=== PATIENT | female | born 1995 | race Caucasian/White ===

== ENCOUNTER 2020-02-12 10:24 | Outpatient (CLI) | payer OTHER ==
[2020-02-12 18:25] LABS: SARS-CoV-2 MS2 Positive; SARS-CoV-2 N Gene Negative; SARS-CoV-2 S Gene Negative; SARS-CoV-2 by NAA Not Detected (NotDetected); SARS-CoV-2 orf1ab Negative
== END 2020-02-12 10:25 | disposition home or self-care (01) ==
LOC: LABBT 10:24
PROVIDERS: ATTEND Student in an Organized Health Care Education/Training Program
DX: Z01.812 Encounter for preprocedural laboratory examination (principal); Z20.822 Contact with and (suspected) exposure to COVID-19
CPT/HCPCS: 87635; U0003

== ENCOUNTER 2020-02-14 15:05 | Inpatient (IN) | payer OTHER, BC ==
[~2020-02-14 15:05] MED LIST: Bupivacaine 0.25% HCL 30 ML VIAL ONE; ePHEDrine 50 MG/ML VIAL ONE
[2020-02-15] MEDS ORDERED: Diphenoxylate HCl/Atropine Tablet PO PRN (03:39)
[2020-02-15] MEDS ORDERED: Lidocaine 1% (PF) 30 ML VIAL SC PRN (03:39)
[2020-02-15] MEDS ORDERED: Ondansetron PF 4 MG/2 ML Vial IVP PRN ×2 (03:39→23:55)
[2020-02-15] MEDS ORDERED: Methylergonovine 0.2 MG/ML VIAL IM PRN (03:39)
[2020-02-15] MEDS ORDERED: Misoprostol 200 MCG TAB PR PRN (03:39)
[2020-02-15] MEDS ORDERED: Carboprost 250 MCG/ML AMP IM PRN (03:39)
[2020-02-15] MEDS ORDERED: Ibuprofen 800 MG TAB PO PRN (03:39)
[2020-02-15] MEDS ORDERED: NS / Oxytocin 40 units/1000ml 1,000 ML IV PRN (03:39)
[2020-02-15] MEDS ORDERED: HYDROcodone/Acetaminophen 5/325 mg Tablet PO PRN (03:39)
[2020-02-15] MEDS ORDERED: Promethazine HCl 25 MG/ML VIAL IM PRN ×2 (03:39→23:55)
[2020-02-15] MEDS ORDERED: Acetaminophen 500 MG TAB PO PRN (03:39)
[2020-02-15] MEDS ORDERED: hydrALAZINE 20 MG/ML VIAL SLOW IVP PRN (03:39)
[2020-02-15 03:50] VITALS: BMI 38.2
[2020-02-15] MEDS ORDERED: Penicillin G Potassium 5 MILL.UNITS VIAL ONE (04:07)
[2020-02-15] MEDS: Misoprostol 100 MCG TAB VAG SCH ×3 (04:21→11:18)
[2020-02-15] MEDS: Lactated Ringer's 1,000 ML IV SCH ×3 (04:21→22:45)
[2020-02-15 04:22] LABS: Hemoglobin 10.2 g/dL (12.0-16.0); Mean Corpuscular HGB CONC 33.7 g/dL (32.0-36.0); Mean Corpuscular Hemoglobin 28.9 pg (27.0-31.0); Mean Corpuscular Volume 85.6 fL (78.0-98.0); Mean Platelet Volume 8.5 fL (7.4-10.4); Platelet Count 276 thou/uL (130-400); RBC Distribution Width 12.8 % (11.5-14.5); Red Blood Cell (RBC) Count 3.54 mill/uL (4.20-5.40); White Blood Cell (WBC) Count 9.5 thou/uL (4.8-10.8)
[2020-02-15 05:05] LABS: HBSAg Index 0.18 S/CO (0-0.99); Hep B Surf Ag Non-Reactive S/CO (NonReactive)
[2020-02-15 06:22] LABS: Syphilis Antibody Nonreactive (Nonreactive); Syphilis Antibody Index 0.02 S/CO (<1.00 Non-Reactive)
--- NOTE | 2020-02-15 08:03 | PDOC.LDHP ---
Labor and Delivery H&P Chief complaint: scheduled induction HPI: 24yo at 39w6d by LMP here for elective IOL. No complaints, no PIH sx. Current gestational age (weeks): 39 Due date: 02/16/20 Dating criteria: last menstrual period Grav: 1 Para: 0 Current complications: none Abnormal US findings: No Past Medical History: denies Current medications: pre- vitamins Previous surgical history: none Allergies/Adverse Reactions: Allergies Allergy/AdvReac Type Severity Reaction Status Date / Time Sulfa (Sulfonamide Allergy Intermediate Hives Verified 02/15/20 03:41 Antibiotics) Social history: none - Physical Exam Vital signs reviewed and normal: yes Abnormal vital signs: mild range bp x 1 General: NAD Heart: RRR Lungs: CTAB Abdomen: gravid Extremeties: no edema FHT: category 1 [place] contractions every: none - Vaginal Exam cm dilated: 1 Effacement: 50% Station: -3 - OB Labs Blood type: O RH: positive Antibody Screen: negative HIV: negative RPR: negative HEPSAg: negative 1 hour GCT: negative GBS: positive Urine drug screen: negative Rubella: immune - Assessment L&D Assessment: elective induction at term - Plan Plan: admit to L&D, cervical ripening, labor augmentation if indicated, GBS antibiotic prophylaxis, informed consent obtained, anesthesia consult for pain management
[2020-02-15] MEDS ORDERED: Penicillin G 2.5 MILL.units 50 ML ONE ×2 (09:59→18:43)
[2020-02-15] MEDS: Penicillin G 2.5 MILL.units 50 ML ONE ×2 (14:34→18:44)
[2020-02-15] MEDS: NS w/ Oxytocin 30 units 500 ML IVPB SCH (15:31)
[2020-02-15] MEDS: Butorphanol Tartrate 1 MG/ML VIAL SLOW IVP PRN ×2 (18:38→21:01)
[2020-02-15] MEDS ORDERED: Penicillin G Potassium 5 MILL.UNITS in Sodium Chloride 0.9% 100 ML IVPB SCH (19:00)
[2020-02-15 19:57] LABS: ALT (SGPT) 11 U/L (8-55); AST (SGOT) 15 U/L (5-34); Albumin 3.3 g/dL (3.5-5.0); Alkaline Phosphatase 177 U/L (40-110); Anion Gap 16 mmol/L (10-20); BUN (Urea Nitrogen) 6 mg/dL (7.0-18.7); Bilirubin, Total 0.4 mg/dL (0.2-1.2); Calc. Creatinine Clearance 202 mL/min (70-130); Calcium 8.7 mg/dL (7.8-10.44); Carbon Dioxide 18 mmol/L (22-29); Chloride 102 mmol/L (98-107); Globulin 3.1 g/dL (2.4-3.5); Glucose 78 mg/dL (70-105); Potassium 3.9 mmol/L (3.5-5.1); Protein, Total 6.4 g/dL (6.0-8.3); Sodium 132 mmol/L (136-145)
[2020-02-15 21:51] LABS: Bilirubin Negative (Negative); Blood, Urine 2+ (Negative); Clarity Extra Turbid (Clear); Glucose, Urine (Dipstick) Normal (Negative); Ketone, Urine 80 mg/dL (Negative); Leukocyte 250 Leu/uL (Negative); Nitrite Negative (Negative); Protein, Urine (Dipstick) 100 mg/dL (Neg-Trace); RBC/HPF Greater than 50 HPF (0-3); Specific Gravity, Urine 1.018 (1.002-1.036); Squamous Epithelial 21-50 HPF (0-3); Urobilinogen Normal mg/dL (Less than 2); WBC/HPF Greater than 50 HPF (0-3)
[2020-02-15 22:06] LABS: Bacteria/HPF 2+ HPF (None Seen)
[2020-02-15] MEDS ORDERED: Fentanyl 4 mcg/Bup 0.1% Cadd 100 ML ONE (22:10)
[2020-02-15] MEDS ORDERED: Communication Order-Pharmacy FS SCH (23:45)
[2020-02-15] MEDS ORDERED: Fentanyl 4 mcg/Bupivacaine 0.1% Cassette 100 ML EPIDURAL SCH (23:45)
[2020-02-15] MEDS ORDERED: ePHEDrine 50 MG/ML VIAL SLOW IVP PRN (23:55)
[2020-02-15] MEDS ORDERED: Naloxone HCl 0.4 mg/ml Vial IVP PRN ×2 (23:55)
[2020-02-15] MEDS ORDERED: Acetaminophen 325 MG TAB PO PRN (23:55)
[2020-02-15] MEDS ORDERED: Lactated Ringer's 500 ML IV PRN (23:55)
[2020-02-15] MEDS ORDERED: diphenhydrAMINE 50 MG/ML VIAL IVP PRN (23:55)
[2020-02-16] MEDS: NS w/ Oxytocin 30 units 500 ML IVPB SCH ×2 (01:18→02:05)
[2020-02-16] MEDS ORDERED: Zolpidem Tartrate 5 MG TAB PO PRN (01:28)
[2020-02-16] MEDS ORDERED: Lanolin Ointment 7 GM TUBE TOP PRN (01:28)
[2020-02-16] MEDS ORDERED: Milk Of Magnesia 30 ML UDCUP PO PRN (01:28)
[2020-02-16] MEDS ORDERED: HYDROcodone/Acetaminophen 5/325 mg Tablet PO PRN ×2 (01:28)
[2020-02-16] MEDS ORDERED: hydrALAZINE 20 MG/ML VIAL SLOW IVP PRN (01:28)
[2020-02-16] MEDS ORDERED: Promethazine HCl 25 MG/ML VIAL IM PRN (01:28)
[2020-02-16] MEDS ORDERED: diphenhydrAMINE 25 MG CAP PO PRN (01:28)
[2020-02-16] MEDS ORDERED: Bisacodyl 10 MG SUPP PR PRN (01:28)
[2020-02-16] MEDS ORDERED: Benzocaine-Menthol 82.5 ML CAN TOP PRN (01:28)
[2020-02-16] MEDS ORDERED: Preparation H Ointment 28 GM TUBE PR PRN (01:28)
[2020-02-16] MEDS ORDERED: Ondansetron PF 4 MG/2 ML Vial IVP PRN (01:28)
--- NOTE | 2020-02-16 01:28 | PDOC.OPDEL ---
OB Operative/Delivery Note Delivery Dr/Surgeon: Nelson Assist: n/a Pre-Delivery Diagnosis: medically indicated induction (GHTN) Procedure/Post Delivery Dx: spontaneous vaginal delivery Weeks gestation: 40 Anesthesia: epidural - Findings A Sex: female - 1 min: 8 - 5 min: 9 - Additional Findings/Plan Placenta delivered: spontaneous Repaired Obstetrical Laceration: 1st degree Estimated blood loss: 150cc Post delivery plan: routine recovery
[2020-02-16] MEDS ORDERED: NS / Oxytocin 40 units/1000ml 1,000 ML IV SCH (01:30)
[2020-02-16] MEDS: Misoprostol 100 MCG TAB VAG SCH ×3 (08:46→19:18)
[2020-02-16] MEDS: Pen G 2.5 MILL.UNITS/50 ML BAG IVPB SCH ×4 (08:46→19:19)
[2020-02-16] MEDS: Lactated Ringer's 1,000 ML IV SCH ×3 (08:47→19:19)
[2020-02-16] MEDS: Ibuprofen 800 MG TAB PO SCH ×3 (08:47→21:26)
[2020-02-16] MEDS ORDERED: Adacel (T-DAP) 0.5 ML SYRINGE IM ONE (09:00)
[2020-02-16] MEDS: Ferrous Sulfate 325 MG TAB PO SCH ×2 (10:23→18:26)
[2020-02-16] MEDS: Docusate Calcium (SURFAK) 240 MG CAP PO SCH ×2 (10:53→21:26)
[2020-02-16] MEDS: Prenatal Vitamin 1 TAB PO SCH (10:53)
[2020-02-17] MEDS: Ibuprofen 800 MG TAB PO SCH ×3 (05:17→21:55)
--- NOTE | 2020-02-17 07:07 | PDOC.PP ---
Post Progress Note Post Day #: 1 Subjective: Doing well this morning. PPD#1. Tolerating PO well. Lochia similar to regular period. Pain-well controlled. Ambulating, voiding, and passing flatus. going well. Denies MALONE, vision changes, CP, SOB, n/v, fever/chills. PO intake tolerated: yes Flatus: yes Ambulation: yes Vital Signs (12 hours) Temp Pulse Resp BP Pulse Ox 02/17/20 00:37 98.2 F 68 16 120/70 02/16/20 20:05 97.9 F 86 16 136/82 98 Weight Weight 104.326 kg - Physical Examination General: NAD (resting comfortably, good spirits) Cardiovascular: RRR Respiratory: clear to auscultation bilaterally Abdominal: + bowel sounds, no distention, appropriately TTP Fundus firm & at: Umbilicus Extremities: negative homans (B) (mild, non-pitting edma to ankles) Neurological: no gross focal deficits Psychiatric: A&Ox3, normal affect Result Diagrams: 02/15/20 04:11 02/15/20 19:26 Additional Labs: Post Labs Hep Bs Antigen Non-Reactive S/CO (NonReactive) 02/15/20 04:11 Blood Type O POSITIVE 02/15/20 04:42 - Assessment/Plan 24yo @40wk s/p now PPD#1 #PPD#1 s/p - on 02/16/20 - QBL 228 - Voiding, flatus, ambulating, tolerating PO, pain-controlled - 1st degree lac repaired - GBS + with adequate tx #gHTN - BP improved this AM, latest 120/70 - Denies severe sx features - Edema stable to 3rd trimester PCP: Nelson Dispo: Routine PP care. Anticipate discharge tomorrow pending clinical course and baby course as GBS+.
[2020-02-17] MEDS: Prenatal Vitamin 1 TAB PO SCH (08:44)
[2020-02-17] MEDS: Ferrous Sulfate 325 MG TAB PO SCH ×2 (08:44→18:23)
[2020-02-17] MEDS: Docusate Calcium (SURFAK) 240 MG CAP PO SCH ×2 (08:44→20:35)
[2020-02-18] MEDS: Ibuprofen 800 MG TAB PO SCH (05:26)
[2020-02-18] MEDS: Ferrous Sulfate 325 MG TAB PO SCH (07:53)
[2020-02-18 08:59] VITALS: BP 139/93; TEMP 97.9
[2020-02-18] MEDS: Prenatal Vitamin 1 TAB PO SCH (09:29)
[2020-02-18] MEDS: Docusate Calcium (SURFAK) 240 MG CAP PO SCH (09:29)
== END 2020-02-18 10:20 | disposition home or self-care (01) | DRG 807 ==
LOC: L&D 02-15 03:09 → 3SW 02-16 09:15
PROVIDERS: ADMIT Student in an Organized Health Care Education/Training Program; ATTEND Student in an Organized Health Care Education/Training Program
PROC: 3E0P7VZ Introduction of Hormone into Female Reproductive, Via Natural or Artificial Opening (ICD-10-PCS; 2020-02-15)
PROC: 10E0XZZ Delivery of Products of Conception, External Approach (ICD-10-PCS; principal; 2020-02-16)
PROC: 0HQ9XZZ Repair Perineum Skin, External Approach (ICD-10-PCS; 2020-02-16)
DX: O13.4 Gestational [pregnancy-induced] hypertension without significant proteinuria, complicating childbirth (principal); Z37.0 Single live birth; O99.824 Streptococcus B carrier state complicating childbirth; Z3A.39 39 weeks gestation of pregnancy; Z88.2 Allergy status to sulfonamides; O70.0 First degree perineal laceration during delivery; Z20.822 Contact with and (suspected) exposure to COVID-19
CPT/HCPCS: 36415; 51702; 80053; 81001; 85027; 86780; 86850; 86900; 86901; 87340; 87635; J0595; J2540; J2590; J3490; S0020; U0003